=== PATIENT | female | born 1970 | race Caucasian/White ===

== ENCOUNTER 2024-05-09 08:53 | Inpatient (IN) | payer OTHER ==
[2024-05-09] MEDS ORDERED: fentaNYL 50 mcg/mL 1 mL Vial ONE ×2 (09:08→11:57)
[2024-05-09] MEDS ORDERED: Glucagon 1 MG/ML KIT IM PRN (11:32)
[2024-05-09] MEDS ORDERED: Dextrose 50% Abboject 50 ML SYRINGE SLOW IVP PRN (11:32)
[2024-05-09] MEDS ORDERED: Dextrose 5% in Water 1,000 ML IV PRN (11:32)
[2024-05-09] MEDS: Morphine 4 MG/ML VIAL SLOW IVP PRN (13:34)
[2024-05-09] MEDS ORDERED: Clindamycin/D5W 900 MG in Premix 1 BAG IVPB SCH (14:15)
[2024-05-09] MEDS: traMADol HCl 50 MG TAB PO PRN (14:59)
[2024-05-09] MEDS: Methocarbamol 500 MG TAB PO PRN (14:59)
[2024-05-09] MEDS: HYDROcodone/Acetaminophen 5/325 mg Tablet PO PRN (17:49)
[2024-05-10] MEDS: Morphine 4 MG/ML VIAL SLOW IVP PRN (01:19)
[2024-05-10 05:02] LABS: #Basophils 0.03 10x3/uL (0.0-0.2); %Basophils 0.4 % (0.0-1.0); %Eosinophils 1.4 % (0.0-10.0); %Monocytes 11.1 % (0.0-10.0); %Neutrophils 57.5 % (42.0-75.0); Hematocrit 34.4 % (36.0-47.0); Hemoglobin 11.7 g/dL (12.0-16.0); Mean Corpuscular Hemoglobin 32.7 pg (27.0-31.0); Mean Corpuscular Volume 96.1 fL (78.0-98.0); Mean Platelet Volume 9.5 fL (7.4-10.4); Platelet Count 227 10x3/uL (130-400); RBC Distribution Width 13.5 % (11.5-14.5); Red Blood Cell (RBC) Count 3.58 mill/uL (4.20-5.40)
[2024-05-10 05:30] LABS: Anion Gap 13 mmol/L (10-20); BUN (Urea Nitrogen) 12 mg/dL (9.8-20.1); Calc. Creatinine Clearance 0 mL/min (70-130); Calcium 8.5 mg/dL (7.8-10.44); Carbon Dioxide 26 mmol/L (22-29); Chloride 102 mmol/L (98-107); Estimated GFR 105; Glucose 103 mg/dL (70-105); Potassium 3.6 mmol/L (3.5-5.1); Sodium 137 mmol/L (136-145)
[2024-05-10] MEDS ORDERED: Clindamycin/D5W 900 mg/50 ml Premix Bag ONE (07:43)
[2024-05-10] MEDS ORDERED: Ondansetron HCl/PF 4 MG/2 ML Vial IVP PRN (07:52)
[2024-05-10] MEDS ORDERED: HYDROmorphone 2 MG/ML VIAL SLOW IVP PRN (07:52)
[2024-05-10] MEDS ORDERED: Meperidine HCl/PF 25 MG/ML VIAL SLOW IVP PRN (07:52)
[2024-05-10] MEDS ORDERED: Promethazine HCl 25 MG/ML VIAL IM PRN (07:52)
[2024-05-10] MEDS ORDERED: Dexamethasone 20 MG/5 ML VIAL ONE (08:06)
[2024-05-10] MEDS ORDERED: Lidocaine 1% PF 5 ML VIAL ONE (08:06)
[2024-05-10] MEDS ORDERED: Ondansetron PF 4 MG/2 ML Vial ONE (08:06)
[2024-05-10] MEDS ORDERED: PROPOFOL 20 ML ONE (08:06)
[2024-05-10] MEDS ORDERED: fentaNYL PF 100 MCG/2 ML SYRINGE ONE (08:06)
[2024-05-10] MEDS ORDERED: Lidocaine 2% 6 ML (Jelly) SYR ONE (08:06)
[2024-05-10] MEDS ORDERED: Midazolam HCl 2 mg/2 ml Vial ONE (08:07)
[2024-05-10] MEDS ORDERED: EPINEPHrine 1 MG/ML VIAL ONE (08:35)
[2024-05-10] MEDS ORDERED: Bupivacaine PF 0.5% 30 ML VIAL ONE (08:35)
[2024-05-10] MEDS ORDERED: Morphine 2 MG/ML VIAL SLOW IVP PRN (09:38)
[2024-05-10] MEDS ORDERED: Ondansetron PF 4 MG/2 ML Vial SLOW IVP PRN (09:38)
[2024-05-10] MEDS ORDERED: Communication Order-Pharmacy FS SCH (09:45)
[2024-05-10] MEDS ORDERED: fentaNYL 50 mcg/mL 1 mL Vial ONE ×2 (09:52→10:03)
[2024-05-10] MEDS ORDERED: HYDROmorphone 0.5 MG/0.5 ML SYRINGE ONE (10:12)
[2024-05-10] MEDS: Ketorolac Tromethamine 30 MG (1 mL) VIAL IVP SCH (12:34)
[2024-05-10] MEDS: Clindamycin/D5W 900 MG in Premix 1 BAG IVPB SCH (16:07)
[2024-05-10] MEDS: Aspirin 81 mg Enteric Coated Tablet PO SCH (20:24)
[2024-05-11 11:49] VITALS: BP 155/83; TEMP 97.5
== END 2024-05-11 15:00 | disposition home or self-care (01) | DRG 494 ==
LOC: ERS 08:53 → SURG B 13:07
PROVIDERS: ADMIT Student in an Organized Health Care Education/Training Program; ATTEND Student in an Organized Health Care Education/Training Program
PROC: 0QSH04Z Reposition Left Tibia with Internal Fixation Device, Open Approach (ICD-10-PCS; principal; 2024-05-09)
PROC: 3E033XZ Introduction of Vasopressor into Peripheral Vein, Percutaneous Approach (ICD-10-PCS; 2024-05-09)
DX: S82.302A Unspecified fracture of lower end of left tibia, initial encounter for closed fracture (principal); S82.832A Other fracture of upper and lower end of left fibula, initial encounter for closed fracture; I10 Essential (primary) hypertension; E11.9 Type 2 diabetes mellitus without complications; F17.290 Nicotine dependence, other tobacco product, uncomplicated; F10.10 Alcohol abuse, uncomplicated; Z88.0 Allergy status to penicillin; Z88.8 Allergy status to other drugs, medicaments and biological substances; Z79.899 Other long term (current) drug therapy; W23.0XXA Caught, crushed, jammed, or pinched between moving objects, initial encounter
CPT/HCPCS: 29515; 36415; 80048; 85025; 96374; 96376; C1713; C1874; G0390; J0171; J0665; J1100; J1171; J1885; J2250; J2270; J2405; J2704; J3010; J3490